=== PATIENT | male | born 1975 | race Caucasian/White ===

== ENCOUNTER 2019-03-15 07:37 | Emergency (ER) | payer SELFPAY ==
[2019-03-15] MEDS ORDERED: MORPHINE SULFATE 10 MG/ML INJ IV ONE ×2 (08:25→10:02)
[2019-03-15] MEDS ORDERED: MAGNESIUM CITRATE 296 ML BOTTLE PO ONE (08:26)
[2019-03-15] MEDS ORDERED: NORMAL SALINE 1000 ML 1,000 ML IV ONE ×2 (08:29→11:23)
[2019-03-15 08:31] LABS: ABSOLUTE BASOPHILS # (AUTO) 0.1 10^3/uL (0.0-0.2); ABSOLUTE LYMPHOCYTES (AUTO) 1.1 10^3/uL (0.5-4.7); ABSOLUTE MONOCYTES (AUTO) 0.5 10^3/uL (0.1-1.4); ABSOLUTE NEUT (AUTO) 9.7 10^3/uL (1.7-8.2); BASOPHILS % (AUTO) 0.5 % (0-2); EOSINOPHILS % (AUTO) 0.4 % (0-6); HEMATOCRIT 44.8 % (37.9-51.0); LYMPHOCYTES % (AUTO) 9.3 % (13-45); MEAN CORPUSCULAR HEMOGLOBIN 29.3 pg (27.0-33.4); MEAN CORPUSCULAR HGB CONC 33.6 g/dL (32.0-36.0); MEAN CORPUSCULAR VOLUME 87 fl (80-97); MONOCYTES % (AUTO) 4.2 % (3-13); PLATELET COUNT 342 10^3/uL (150-450); RED BLOOD COUNT 5.12 10^6/uL (4.35-5.55); RED CELL DISTRIBUTION WIDTH 13.5 % (11.5-14.0); SEGMENTED NEUTROPHILS % (AUTO) 85.6 % (42-78); TOTAL CELLS COUNTED % (AUTO) 100 %; WHITE BLOOD COUNT 11.3 10^3/uL (4.0-10.5)
[2019-03-15] MEDS ORDERED: ONDANSETRON HCL INJ/PF 4 MG/2 ML SDV IV ONE (08:38)
--- NOTE | 2019-03-15 08:45 | RADIOLOGY REPORT (SQ) ---
EXAM DESCRIPTION: KUB/ABDOMEN (SINGLE VIEW) COMPLETED DATE/TIME: 03/15/2019 8:37 am REASON FOR STUDY: constipation, abd pain COMPARISON: None. NUMBER OF VIEWS: One view. TECHNIQUE: Supine radiographic image of the abdomen acquired. LIMITATIONS: None. FINDINGS: BOWEL GAS PATTERN: Nonobstructive pattern. CALCIFICATIONS: No calcifications projecting within the renal fossae, along the expected course of th e ureters, or within the urinary bladder. SOFT TISSUES: No abnormality. HARDWARE: Cholecystectomy clips projecting within the gallbladder fossa. BONES: No acute findings. OTHER: No other finding. IMPRESSION: Nonobstructive bowel gas pattern. TECHNICAL DOCUMENTATION: JOB ID: [id number] [employer]- All Rights Reserved Reading location - IP/workstation name: [email or web address]
[2019-03-15 08:55] LABS: ALBUMIN 4.7 g/dL (3.5-5.0); ALKALINE PHOSPHATASE 40 U/L (38-126); ANION GAP 14 (5-19); ASPARTATE AMINO TRANSFERASE 81 U/L (17-59); BILIRUBIN,DIRECT 0.4 mg/dL (0.0-0.4); BILIRUBIN,TOTAL 0.4 mg/dL (0.2-1.3); BLOOD UREA NITROGEN 21 mg/dL (7-20); CALCIUM 9.8 mg/dL (8.4-10.2); CARBON DIOXIDE 23 mmol/L (22-30); CHLORIDE 105 mmol/L (98-107); GLUCOSE 107 mg/dL (75-110); POTASSIUM 4.6 mmol/L (3.6-5.0)
--- NOTE | 2019-03-15 09:11 | ER Document Report ---
ED General - General Chief Complaint: Abdominal Pain Stated Complaint: ABDOMINAL PAIN Time Seen by Provider: 03/15/19 08:24 Primary Care Provider: [facility] [Provider Group] - Follow up in 3-5 days MATILDE CHAVARRIA MD [DOUBLE END TRIMMER] - Follow up in 1 week TEO ANGELES MD [ACTIVE STAFF] - Follow up in 3-5 days VAMSI SOLORIO MD [EMERITUS] - Follow up in 1 week KAROL ALBERTO MD [NO LOCAL MD] - Follow up in 1 week AYDEN VASQUEZ MD [DOUBLE END TRIMMER] - Follow up in 1 week ALBA LOERA MD [DOUBLE END TRIMMER] - Follow up in 1 week Notes: 43-year-old male presents with left abdominal pain that started earlier this morning. Patient had associated nausea/vomiting and constipation. Per patient has passed a very small amount of stool. Patient states he usually goes daily. Patient denies any fever, diarrhea, chest pain, dyspnea. Patient denies any urinary symptoms including hematuria, urinary frequency, inability to urinate, hematuria. TRAVEL OUTSIDE OF THE [place] IN LAST 30 DAYS: No - Related Data Allergies/Adverse Reactions: No Known Allergies Allergy (Verified 03/15/19 07:53) Past Medical History - Social History Smoking Status: Never Smoker Family History: None Patient has suicidal ideation: No Patient has homicidal ideation: No - Past Medical History Cardiac Medical History: Reports: Hx Hypertension - on meds Denies: Hx Coronary Artery Disease, Hx Heart Attack Pulmonary Medical History: Denies: Hx Asthma, Hx Bronchitis, Hx COPD, Hx Pneumonia Neurological Medical History: Denies: Hx Cerebrovascular Accident, Hx Seizures Musculoskeletal Medical History: Denies Hx Arthritis - Immunizations Immunizations up to date: Yes Hx Diphtheria, Pertussis, Tetanus Vaccination: No Review of Systems - Review of Systems Notes: Constitutional: Negative for fever. HENT: Negative for sore throat. Eyes: Negative for visual changes. Cardiovascular: Negative for chest pain. Respiratory: Negative for shortness of breath. Gastrointestinal: Positive for abdominal pain, nausea, vomiting and constipation. Negative for diarrhea. Genitourinary: Negative for dysuria. Musculoskeletal: Negative for back pain. Skin: Negative for rash. Neurological: Negative for headaches, weakness or numbness. 10 point ROS negative except as marked above and in HPI. Physical Exam - Vital signs Vitals: Temp Pulse Resp BP Pulse Ox 97.3 F 67 20 171/93 H 96 03/15/19 07:42 03/15/19 07:42 03/15/19 07:42 03/15/19 07:42 03/15/19 07:42 - Notes Notes: GENERAL: Well-appearing, well-nourished and uncomfortable HEAD: Atraumatic, normocephalic. EYES: Pupils equal round and reactive to light, extraocular movements intact, sclera anicteric, conjunctiva are normal. ENT: TMs normal, nares patent, oropharynx clear without exudates. Moist mucous membranes. NECK: Normal range of motion, supple without lymphadenopathy or JVD. LUNGS: Breath sounds clear to auscultation bilaterally and equal. No wheezes rales or rhonchi. HEART: Regular rate and rhythm without murmurs, rubs or gallops. ABDOMEN: Soft, tenderness to left side of abdomen. No guarding, no rebound. No masses appreciated. No CVA tenderness. EXTREMITIES: Normal range of motion, no pitting or edema. No clubbing or cyanosis. NEUROLOGICAL: Cranial nerves II through XII grossly intact. Normal speech, normal gait. PSYCH: Normal mood, normal affect. SKIN: Warm, Dry, normal turgor, no rashes or lesions noted. Course - Re-evaluation Re-evalutation: 03/15/19 43-year-old male presents with left-sided abdominal pain and constipation with nausea/vomiting. Initially CBC, CMP, lipase, and KUB were o rdered due to this history of constipation and abdominal pain. Patient is nontoxic, well-appearing however appears uncomfortable. Abdomen soft tenderness to left side of abdomen. Nonsurgical abdomen. KUB shows no obstructive bowel gas pattern. CT abdomen/pelvis with IV contrast was ordered. Morphine, Zofran, IV fluids were ordered. 03/15/19 12:08 CT shows kidney stone. Discussed all results with pt and pt's . Strict return precautions given. Pt given Flomax, pain control with sedation warning, and zofran. Pt given referral to urology and PCP. Pt voices understanding and agrees with plan of care. - Vital Signs Vital signs: Temp Pulse Resp BP Pulse Ox 97.8 F 68 15 106/49 L 96 03/15/19 13:51 03/15/19 13:51 03/15/19 13:51 03/15/19 13:51 03/15/19 13:51 - Laboratory Result Diagrams: 03/15/19 08:19 03/15/19 08:19 Laboratory results interpreted by me: 03/15/19 03/15/19 03/15/19 08:19 08:19 11:57 WBC 11.3 H Lymph % (Auto) 9.3 L Absolute Neuts (auto) 9.7 H Seg Neutrophils % 85.6 H BUN 21 H Creatinine 1.41 H Est GFR (MDRD) Non-Af 55 L AST 81 H Urine Blood LARGE H Discharge - Discharge Clinical Impression: Left ureteral calculus Condition: Stable Disposition: HOME, SELF-CARE Instructions: Kidney Stone ([facility]) Additional Instructions: Your CT shows a kidney stone on the left side. Please take medicines as prescribed. Please do not drink or drive while taking narcotics as they may make you drowsy. Please follow-up with the urologist as referred 1 week. Please follow-up with your primary care doctor 1 of the clinics listed in 3 to 5 days. Return immediately to ER if you start having any worsening symptoms, i ncluding inability to urinate, burning when you pee, fever, abdominal pain, vomiting not controlled by medication, or any other symptoms that are concerning to you. Prescriptions: Tamsulosin HCl [Flomax 0.4 mg Cap.sr] 0.4 mg PO DAILY #7 cap.sr.24h Ibuprofen [Motrin 800 mg Tablet] 800 mg PO Q8H PRN #30 tab PRN Reason: Oxycodone HCl/Acetaminophen [Percocet 5-325 mg Tablet] 1 - 2 tab PO ASDIR PRN #15 tablet PRN Reason: Ondansetron [Zofran Odt 4 mg Tablet] 1 - 2 tab PO Q4H PRN #15 tab.rapdis PRN Reason: For Nausea/Vomiting Forms: Return to Work Referrals: TEO ANGELES MD [ACTIVE STAFF] - Follow up in 3-5 days [facility] [Provider Group] - Follow up in 3-5 days MATILDE CHAVARRIA MD [BETTY MARTE] - Follow up in 1 week KAROL LABERTO MD [NO LOCAL MD] - Follow up in 1 week AYDEN VASQUEZ MD [BETTY MARTE] - Follow up in 1 week VAMSI SOLORIO MD [EMERITUS] - Follow up in 1 week ALBA LOERA MD [BETTY MARTE] - Follow up in 1 week
--- NOTE | 2019-03-15 10:16 | RADIOLOGY REPORT (SQ) ---
EXAM DESCRIPTION: CT ABD/PELVIS WITH IV ONLY COMPLETED DATE/TIME: 03/15/2019 9:51 am REASON FOR STUDY: left sided abd pain, nausea/vomiting COMPARISON: None. TECHNIQUE: CT scan of the abdomen and pelvis performed using helical scanning technique with dynamic intravenous contrast injection. No oral contrast. Images reviewed with lung, soft tissue, and bone windows. Reconstructed coronal and sagittal MPR images reviewed. Delayed images for evaluation of the urinary system also acquired. All images stored on PACS. All CT scanners at this facility use dose modulation, iterative reconstruction, and/or weight based d osing when appropriate to reduce radiation dose to as low as reasonably achievable (ALARA). [facility]: Dose Right [facility]: CareDose [facility]: Dose Right [facility]: Teradose 4D [facility]: Cinsay CONTRAST TYPE AND DOSE: Contrast/concentration: Isovue 350.00 mg/ml; Total Contrast Delivered: 100.0 ml; Total Saline Delivered: 68.8 ml RENAL FUNCTION: GFR > 60. RADIATION DOSE: CT Rad equipment meets quality standard of care and radiation dose reduction techniq ues were employed. CTDIvol: 10.7 - 15.1 mGy. DLP: 1587 mGy-cm.. LIMITATIONS: None. FINDINGS: LOWER CHEST: No acute findings LIVER: The liver morphology is non cirrhotic. The portal veins are patent. There is no hepatic mass . SPLEEN: The spleen is normal in size. There is no splenic mass. PANCREAS: No abnormality of the pancreas. GALLBLADDER: The gallbladder is surgically absent. ADRENAL GLANDS: No abnormality of the adrenal glands. RIGHT KIDNEY AND URETER: No solid mass, hydronephrosis, nephrolithiasis, hydroureter or ureterolithia sis. LEFT KIDNEY AND URETER: 3 mm calculus at the ureterovesicular junction that results in upstream hydro nephrosis and hydroureter, delayed nephrographic enhancement, and asymmetric stranding and fluid in t he perirenal space. There is no solid mass or other ureteral / renal calcification. AORTA AND VESSELS: No aneurysm or dissection of the abdominal aorta. RETROPERITONEUM: No retroperitoneal adenopathy, hemorrhage or mass. BOWEL AND PERITONEAL CAVITY: No bowel obstruction, bowel wall thickening, pericolonic/perienteric inf lammation. No mesenteric adenopathy, free intraperitoneal fluid or mesenteric/ omental inflammation. APPENDIX: Normal. PELVIS: Evaluation is limited due to motion artifact. The prostate gland is normal in size. The uri nary bladder is partially distended. ABDOMINAL WALL: The left inguinal canal is patulous. BONES: No acute findings. OTHER: No other finding. IMPRESSION: 1. 3 mm calculus in the left ureterovesicular junction with associated findings of obstr uctive uropathy as detailed above. 2. Other findings as detailed above. TECHNICAL DOCUMENTATION: JOB ID: [id number] Quality ID # [id number]: Final reports with documentation of one or more dose reduction techniques (e.g., Au tomated exposure control, adjustment of the mA and/or kV according to patient size, use of iterative reconstruction technique) 2010 [employer] All Rights Reserved Reading location - IP/workstation name: [email or web address]
[2019-03-15] MEDS ORDERED: KETOROLAC TROMETHAMINE INJ/PF 30 MG/1 ML SDV IV ONE (11:22)
[2019-03-15 12:15] LABS: APPEARANCE,URINE CLEAR; BILIRUBIN,URINE NEGATIVE (NEGATIVE); COLOR,URINE YELLOW; GLUCOSE, URINE NEGATIVE (NEGATIVE); KETONES,URINE NEGATIVE (NEGATIVE); LEUKOCYTE ESTERASE,URINE NEGATIVE (NEGATIVE); NITRITE,URINE NEGATIVE (NEGATIVE); PROTEIN,URINE NEGATIVE (NEGATIVE); UROBILINOGEN,URINE NEGATIVE mg/dL (<2.0)
[2019-03-15 13:54] VITALS: BP 106/49
== END 2019-03-15 13:51 | disposition home or self-care (01) ==
LOC: ER 07:37
DX: N20.1 Calculus of ureter (principal); R10.9 Unspecified abdominal pain; R11.2 Nausea with vomiting, unspecified; K59.00 Constipation, unspecified; I10 Essential (primary) hypertension; Z79.899 Other long term (current) drug therapy
CPT/HCPCS: 96376; 99284; 96361; 96374; 96375; 36415; 83690; 85025; 80053; 81001; 74018; 74177; J3490; J1885; J2270; J2405; J7030